=== PATIENT | female | born 1965 | race Caucasian/White ===

== ENCOUNTER 2021-11-21 01:27 | Day surgery (SDC) | payer BC, SELFPAY ==
[2021-11-04 14:22] VITALS: BMI 39.5
--- NOTE | 2021-11-20 14:28 | WPDANESEPPF ---
Anes - Initial Pre Proc Eval Procedure: Operation Date: 11/21/21 08:00 Proposed Procedures p Screening Colonoscopy - Roque Benavides MD Date/Time: 11/20/21 14:28 Surgeon: Roque Benavides MD Pre Op Diagnosis: hx of colon polyps, neoplasm screening Patient Data Age: 56 Gender: F Height: 1.63 m Weight: 104.5 kg Allergies Allergy/AdvReac Type Severity Reaction Status Date / Time Penicillins Allergy Unknown ? Verified 11/21/21 06:47 Home Medications Medication Instructions Recorded Confirmed Type cholecalciferol (vitamin D3) 50 50 mcg PO DAILY 12/28/19 11/21/21 History mcg (2,000 unit) capsule multivitamin with minerals-folic 0.4 mg PO DAILY 12/28/19 11/21/21 History acid 0.4 mg tablet (One Daily Womens 50 Plus) tamoxifen 20 mg tablet 20 mg PO DAILY 12/28/19 11/21/21 History venlafaxine 37.5 mg 37.5 mg PO DAILY 12/28/19 11/21/21 History tablet,extended release 24 hr calcium polycarbophil 625 mg 625 mg PO DAILY 04/02/21 11/21/21 History tablet (FiberCon) coenzyme Q10 10 mg capsule (Co 10 mg PO DAILY 04/02/21 11/21/21 History Q-10) atorvastatin 20 mg tablet 20 mg PO DAILY #90 tabs 06/24/21 11/21/21 Rx Patient hx anesthesia problems: none Family hx anesthesia problems: none Results Review: All pre-operative results and documents have been reviewed as part of the pre-operative evaluation. [facility] Past Medical History Medical History (Updated 11/20/21 @ 14:28 by Eliud Drake DO) Anxiety BMI 37.0-37.9, adult Breast cancer in female Colon cancer screening History of left breast cancer History of motion sickness Hot flashes Mixed hyperlipidemia Polyposis associated with heterozygous mutation in MUTYH gene Use of tamoxifen (Nolvadex) Surgical History Surgical History History of lymph node dissection of left axilla Family History Family History Father Hypertension Heart disease Hyperlipidemia Diabetes mellitus Mother Hypertension Hyperlipidemia Social History Social History Smoking status: Never smoker Alcohol intake: current Drinks per week: 1 Substance use: never Substance use type: does not use Living arrangements: with family Gender identity (if verbalized by the patient): Female Sexual Orientation (if Verbalized by the Patient): Straight or Heterosexual Spiritual care concerns: No Agree to blood products: Yes Anes - Eval Final PreProcedure Day of Procedure 11/20/21 14:28 Patient weight: obese Heart: regular rate and rhythm Lungs: clear to auscultation Airway: Mallampati scale class II Neurological: alert and oriented Last oral intake: >/= 8 hours ASA classification: III Emergent: no Anesthetic plan: proceed Anesthesia type and monitoring: general GIVS and standard monitoring Results Review: All pre-operative results and documents have been reviewed as part of the pre-operative evaluation. Informed Consent: The patient's anesthetic plan and its attendant risks and benefits were discussed with the patient/family/POA. Questions were solicited and answers provided to the satisfaction of the patient/family/POA.
--- NOTE | 2021-11-20 15:10 | PM.HPGS ---
History of Present Illness History of Present Illness Consent: Risks, benefits, and alternatives have been discussed and questions answered. Patient agrees to proceed with procedure. Chief complaint: hx of colon polyps, neoplasm screening Narrative: Samantha Tello is a 56 year old female With a history of polyps referred for colon cancer screening. She had an adenomatous polyp removed 4 years ago. Also, she carries a gene, having had genetic testing for colon cancer. Her grandfather had colon cancer Review of Systems Review of Systems: All systems reviewed & are unremarkable except as noted in HPI and below PMFSH Past Medical History Medical History Anxiety BMI 37.0-37.9, adult Breast cancer in female Colon cancer screening History of left breast cancer History of motion sickness Hot flashes Mixed hyperlipidemia Polyposis associated with heterozygous mutation in MUTYH gene Use of tamoxifen (Nolvadex) Surgical History Surgical History History of lymph node dissection of left axilla Family History Family History Father Hypertension Heart disease Hyperlipidemia Diabetes mellitus Mother Hypertension Hyperlipidemia Social History Social History Smoking status: Never smoker Alcohol intake: current Drinks per week: 1 Substance use: never Substance use type: does not use Living arrangements: with family Gender identity (if verbalized by the patient): Female Sexual Orientation (if Verbalized by the Patient): Straight or Heterosexual Spiritual care concerns: No Agree to blood products: Yes Meds Home Medications and Allergies Home Medications Medication Instructions Recorded Confirmed Type cholecalciferol (vitamin D3) 50 50 mcg PO DAILY 12/28/19 11/21/21 History mcg (2,000 unit) capsule multivitamin with minerals-folic 0.4 mg PO DAILY 12/28/19 11/21/21 History acid 0.4 mg tablet (One Daily Womens 50 Plus) tamoxifen 20 mg tablet 20 mg PO DAILY 12/28/19 11/21/21 History venlafaxine 37.5 mg 37.5 mg PO DAILY 12/28/19 11/21/21 History tablet,extended release 24 hr calcium polycarbophil 625 mg 625 mg PO DAILY 04/02/21 11/21/21 History tablet (FiberCon) coenzyme Q10 10 mg capsule (Co 10 mg PO DAILY 04/02/21 11/21/21 History Q-10) atorvastatin 20 mg tablet 20 mg PO DAILY #90 tabs 06/24/21 11/21/21 Rx Allergies Allergy/AdvReac Type Severity Reaction Status Date / Time Penicillins Allergy Unknown ? Verified 11/21/21 06:47 Exam Resp: Auscultation: clear to auscultation bilaterally Cardio: Rate: regular rate Rhythm: regular rhythm GI: GI Palp: Yes Soft to palpation and No Tenderness to palpation present (GI) Assessment and Plan Assessment and plan (1) Colon cancer screening: Code(s): Z12.11 - Encounter for screening for malignant neoplasm of colon Status: Acute Assessment and Plan: Colonoscopy with possible biopsy or polypectomy or cautery or injection of substances.
[2021-11-21 06:48] VITALS: BP 122/84; PULSE 120; RESP 17; TEMP 36.8; O2SAT 98; BMI 40.3
[2021-11-21] MEDS: LACTATED RINGERS 1,000 ML 150 ML IV CONT (06:59)
[2021-11-21 08:12] VITALS: BP 95/54; PULSE 85; RESP 18; O2SAT 100
[2021-11-21 08:22] VITALS: BP 118/67; PULSE 84; RESP 22; O2SAT 100
[2021-11-21 08:32] VITALS: BP 118/61; PULSE 80; RESP 17; O2SAT 100
== END 2021-11-21 08:42 | disposition home or self-care (01) ==
PROVIDERS: PCP Family Medicine; Visit Provider Internal Medicine Gastroenterology
PROC: 0DJD8ZZ Inspection of Lower Intestinal Tract, Via Natural or Artificial Opening Endoscopic (ICD-10-PCS; CPT 45378; principal; 2021-11-21 08:00)
DX: Z12.11 Encounter for screening for malignant neoplasm of colon (principal); K57.30 Diverticulosis of large intestine without perforation or abscess without bleeding; Z86.010 Personal history of colon polyps; E78.2 Mixed hyperlipidemia; F41.9 Anxiety disorder, unspecified; Z85.3 Personal history of malignant neoplasm of breast; Z15.09 Genetic susceptibility to other malignant neoplasm; Z79.810 Long term (current) use of selective estrogen receptor modulators (SERMs); E66.9 Obesity, unspecified; Z68.41 Body mass index [BMI] 40.0-44.9, adult
CPT/HCPCS: 45378; J2704; J7120

== ENCOUNTER 2024-08-30 15:46 | Emergency (ER) | payer BC, SELFPAY ==
--- NOTE | 2024-08-30 15:49 | ED_ITS ---
HPI - URI/Sore Throat General Chief Complaint: Upper Respiratory Infection Stated Complaint: COLD/COUGH Time Seen by Provider: 08/30/24 15:55 Source: patient Mode of arrival: ambulatory Limitations: no limitations History of Present Illness HPI Narrative: aMribel is a 59-year-old female patient presenting to the clinic today with complaints of runny nose, sinus congestion, sinus pressure, and cough times 2 weeks. She denies any known fevers, chills, body aches. Denies any chest pain or shortness of breath. Does have some rib pain with coughing. Is coughing up some clearish brown phlegm at times. She is a nonsmoker Related Data Home Medications ?Medication ?Instructions ?Recorded ?Confirmed ?Last Taken ?Type cholecalciferol (vitamin D3) 50 50 mcg PO DAILY 12/28/19 06/09/24 11/20/21 History mcg (2,000 unit) capsule multivitamin with minerals-folic 0.4 mg PO DAILY 12/28/19 06/09/24 11/20/21 History acid 0.4 mg tablet (One Daily Womens 50 Plus) venlafaxine 37.5 mg 37.5 mg PO DAILY 12/28/19 06/09/24 11/20/21 History tablet,extended release 24 hr calcium polycarbophil 625 mg 625 mg PO DAILY 04/02/21 06/09/24 11/20/21 History tablet (FiberCon) coenzyme Q10 10 mg capsule (Co 10 mg PO DAILY 04/02/21 06/09/24 11/20/21 History Q-10) Allergies Allergy/AdvReac Type Severity Reaction Status Date / Time Penicillins Allergy Unknown ? Verified 06/09/24 10:45 Review of Systems Review of Systems: Pertinent positives per HPI. Patient denies any fever, chills, rash, visual changes, dizziness, shortness of breath, chest pain, palpitations, nausea, vomiting, diarrhea, constipation, abdominal pain, or any urinary issues. [facility] Past Medical History Medical History Mixed hyperlipidemia Polyposis associated with heterozygous mutation in MUTYH gene BMI 37.0-37.9, adult Use of tamoxifen (Nolvadex) Hot flashes Colon cancer screening History of motion sickness Anxiety History of left breast cancer Breast cancer in female Surgical History Surgical History History of lymph node dissection of left axilla Family History Family History Father Hypertension Heart disease Hyperlipidemia Diabetes mellitus Mother Hypertension Hyperlipidemia Social History Social History Smoking status: Never smoker Alcohol intake: current Drinks per week: 1 Substance use: never Substance use type: does not use Living arrangements: with family Occupation/Education: occupation Gender identity (if verbalized by the patient): Female Sexual Orientation (if Verbalized by the Patient): Straight or Heterosexual Spiritual care concerns: No Agree to blood products: Yes Comments At the time of my signature, I reviewed and agree with the nursing past medical, surgical, social, and family history. There is no relevant family history pertinent to the patient complaint. Exam Narrative: General: Well-developed, well nourished, in no apparent distress Head: Normocephalic, atraumatic Eyes: Pupils equally round and reactive to light bilaterally, EOM intact, sclera and conjunctive clear, no discharge, lids normal Ears: TMs intact and clear, ear canals clear, no drainage, grossly hearing normal. Nose: Nares patent, yellow nasal discharge, moderate inflammation, maxillary sinus tenderness. Mouth: Oropharynx without lesions or masses, good dentition, MMM. Postnasal drip Neck: Supple, trachea midline, no enlargement of anterior or posterior cervical nodes, no thyroid masses or goiter palpable. Cardio: Regular rate and rhythm, s1 and s2 normal, no murmur appreciated. Resp: Clear to auscultation bilaterally anteriorly and posteriorly, no rhonchi, rales, wheezing or rubs Course Course Emergency Course: Portions of this record may have been created with voice recognition software. Level of Care: Express Care Visit Vital Signs Vital signs: Vital Signs Temperature 36.7 C 08/30/24 15:55 Pulse Rate 92 08/30/24 15:55 Respiratory Rate 16 08/30/24 15:55 Blood Pressure 177/84 H 08/30/24 15:55 Pulse Oximetry 98 08/30/24 15:55 Temperature 36.7 C 08/30/24 15:55 Pulse Rate 92 08/30/24 15:55 Respiratory Rate 16 08/30/24 15:55 Blood Pressure 177/84 H 08/30/24 15:55 Pulse Oximetry 98 08/30/24 15:55 Vital signs reviewed MDM - URI/Sore Throat MDM Narrative Medical decision making narrative: At the time of visit patient is resting comfortably on the exam table. Patient appears to be nontoxic. Plan: I suspect patient has rhinosinusitis. Prescription for doxycycline, Tessalon Perles, and prednisone was sent to the pharmacy. Supportive measures were discussed with the patient and they voiced understanding discharge instructions and agrees to treatment plan. Return precautions reviewed Discharge Plan Discharge Clinical Impression: Acute rhinosinusitis Patient Disposition: Home Condition: Stable Instructions: Antibiotic Form, Sinusitis (ED) Additional Instructions: Take prescription medications only as prescribed-doxycycline and prednisone Increase fluids and stay well hydrated Tylenol/motrin for pain/fever Flonase and OTC antihistamines as directed Vicks vapor rub to open sinuses Sinus rinses for congestion Cepacol spray, cough drops, throat lozenges, warm tea with honey/lemon, gargle salt water to soothe throat BRAT diet for diarrhea Clear liquids x 24 hours then advance as tolerated for nausea/vomiting Go to the ED if you develop a worsening in your condition- high fever not controlled by Tylenol or Motrin, dehydration, weakness, lethargy, shortness of breath, or chest pain. Follow up with your PCP in 3-5 days if symptoms persist. Patient Language: Persian Prescriptions: New prednisone 20 mg tablet 40 mg PO DAILY 5 Days Qty: 10 0RF doxycycline monohydrate 100 mg capsule 100 mg PO BID 10 Days Qty: 20 0RF benzonatate 200 mg capsule 200 mg PO TID 7 Days Qty: 21 0RF No Action venlafaxine 37.5 mg tablet extended release 24hr 37.5 mg PO DAILY One Daily Womens 50 Plus 0.4 mg tablet 0.4 mg PO DAILY cholecalciferol (vitamin D3) 50 mcg (2,000 unit) capsule 50 mcg PO DAILY coenzyme Q10 [Co Q-10] 10 mg capsule 10 mg PO DAILY calcium polycarbophil [FiberCon] 625 mg tablet 625 mg PO DAILY atorvastatin 20 mg tablet 20 mg PO DAILY Qty: 90 2RF Follow-up/Referrals: Pinky Tierney MD [Primary Care Provider] - Time of Disposition: 16:00 Quality NIHSS Nursing Documentation ED NIHSS nursing documentation: reviewed/agree
[2024-08-30 15:55] VITALS: BP 177/84; PULSE 92; RESP 16; TEMP 36.7; O2SAT 98
== END 2024-08-30 16:02 | disposition home or self-care (01) ==
PROVIDERS: Emergency Provider Nurse Practitioner Family; PCP Family Medicine
DX: J01.90 Acute sinusitis, unspecified (principal); E78.2 Mixed hyperlipidemia; F41.9 Anxiety disorder, unspecified; Z85.3 Personal history of malignant neoplasm of breast
CPT/HCPCS: 99213; G0463

== ENCOUNTER 2024-11-24 00:22 | Day surgery (SDC) | payer BC, SELFPAY ==
[2024-11-14 08:34] VITALS: BMI 41.2
--- OUTSIDE RECORDS SUMMARY | 2024-11-24 00:24 | XMS_ITS | Encounter Summary ---
Author Organization [facility] Address [address] [place] [address] Care Team Providers Care Equipment Operator/Laborer/Supervisor Name Role Phone Taran Olivarez Primary Care Provider [phone] Encounter Details Date Type Department Care Team (Late Contact Info) Description 01/15/2002 Outpatient Historical [facility] [place], [place] [address] [facility] [address] [place] [address] Social History Tobacco Use Types Packs/Day Years Used Date Smoking Tobacco: Never Assessed Comments Unknown Sex and Gender Information Value Date Recorded Sex Assigned at Not on file Legal Sex Female 4:22 AM MANAGER LINE Gender Identity Not on file Sexual Orientation Not on file documented as of this encounter Plan of Treatment Upcoming Encounters Date Type Department Care Team ([facility] Contact Info) Description 11/29/2024 10:50 AM CDT Appointment [facility] [address] [place] [address] Ambar Hamlin MD [address] [place] [id number] 11/29/2024 11:30 AM CDT Office Visit [facility] Nakia Farr [address] [place] [address] Ambar Hamlin MD [address] [place] [address] documented as of this encounter Visit Diagnoses Not on filedocumented in this encounter Care Teams Equipment Operator/Laborer/Supervisor Relationship Specialty Start Date End Date Taran Olivarez PA [address] [place] [address] PCP - General Physician Relationship Mgr 10/30/20 documented as of this encounter
--- OUTSIDE RECORDS SUMMARY | 2024-11-24 00:24 | XMS_ITS | Clinical Summary ---
Author Organization [facility] [address] [place] Address [address] [place] [id number] Care Team Providers Care Amusement Ride Inspector Name Role Phone Pinky Tierney MD Primary Care Provider [phone] Allergies Active Allergy Reactions Criticality Noted Date Comments Penicillins Rash Medium 05/13/2023 Medications venlafaxine XR (EFFEXOR-XR) 37.5 mg 24 hr capsule Take 1 capsule (37.5 mg total) by mouth daily 3 Active multivitamin tablet Take 1 tablet by mouth daily Active cholecalciferol (D3-2000) 2000 unit capsule Active calcium polycarbophil (FIBERCON ORAL) Acti ve atorvastatin (LIPITOR) 20 mg tablet Take 1 tablet (20 mg total) by mouth daily 3 Active coenzyme Q10 (Co Q-10) 10 mg capsule Active benzonatate (TESSALON) 100 mg capsuleIndications :Cough Take 1 capsule (100 mg total) by mouth 3 (three) times a day as needed for cough 21 capsule 4 Active Active Problems No known active problems Social History Tobacco Use Types Packs/Day Years Used Date Smoking Tobacco: Never Assessed Comments Unknown Sex and Gender Information Value Date Recorded Sex Assigned at Not on file Legal Sex Female 11:33 PM POLICE DETENTION ATTENDANT Gender Identity Not on file Sexual Orientation Not on file Obstetrics History Last Filed Vital Signs Vital Sign Reading Time Taken Comments Blood Pressure 141/83 05/13/2023 12:18 PM POLICE DETENTION ATTENDANT Pulse 94 05/13/2023 12:18 PM POLICE DETENTION ATTENDANT Temperature 37 C (98.6 F) 05/13/2023 12:18 PM POLICE DETENTION ATTENDANT Respiratory Rate 18 05/13/2023 12:1 8 PM POLICE DETENTION ATTENDANT Oxygen Saturation 99% 05/13/2023 12: 18 PM POLICE DETENTION ATTENDANT Inhaled Oxygen Concentration - - Weight 102.6 kg (226 lb 3.2 oz) 024 12:18 PM POLICE DETENTION ATTENDANT Height 162.6 cm (5' 4) 05/13/2023 12:1 8 PM POLICE DETENTION ATTENDANT Body Mass Index 38.83 05/13/2023 12:18 PM POLICE DETENTION ATTENDANT Plan of Treatment Health Maintenance Due Date Last Done Comments Breast Cancer Screening-Mammogram 1965 Cervical Cancer Screening 1965 Colon Cancer Screening-Colonoscopy 1965 Depression Screening 1965 Hepatitis C Screening 1965 DTaP/Tdap/Td Vaccine (1 - Tdap) 1976 Hepatitis B Screening 1983 Regular Well Visit/Exam 18-64 1983 Zoster Vaccine (1 of 2) 2015 Covid-19 Vaccine (2 - 2023-2 5 season) 2024 08/17/2020 Influenza Vaccine (Season Ended) 2025 Pneumococcal vaccine <65 Aged Out No longer eligible based on patient's age to complete this topic Insurance [facility] ACCESS CHO[facility] Member Subscriber Plan / Payer (Ef fective 2022-Present) Name:Samantha Tello Relation to Subscriber:Self Name:Samantha Tello Payer ID:[id number] (NAIC) Type:ALFREDO BOWEN Address: [facility] [address] [place] [id number] Care Teams Amusement Ride Inspector Relationship Specialty Start Date End Date Pinky Tierney MD PCP - General Family Medicine 05/13/23
--- OUTSIDE RECORDS SUMMARY | 2024-11-24 00:24 | XMS_ITS | Clinical Summary ---
Author Organization [facility] Address [address] [place] [address] Phone Care Team Providers Care Mallet And Die Cutter Name Role Phone Taran Olivarez Primary Care Provider [phone] Allergies Active Allergy Reactions Criticality Noted Date Comments Penicillins Unknown 09/23/2017 Medications venlafaxine (EFFEXOR) 37.5 mg tablet Take 37.5 mg by mouth daily. Active atorvastatin (LIPITOR) 5 mg tablet Take 5 mg by mouth daily with supper. Active IBUPROFEN ORAL Take by mouth. Active ubidecarenone (COENZYME Q10 ORAL) Take by mouth. Active cholecalciferol (VITAMIN D3) 400 unit Tablet Take by mouth daily. Active multivitamin (DAILY-SHLOMO) tablet Take 1 Tablet by mouth daily. Active calcium polycarbophil (FIBERCON ORAL) Take by mouth. Active Active Problems Problem Noted Date Diagnosed Date Malignant neoplasm of upper- outer quadrant of left breast in female, ILC 09/23/2017 Overview (05/26/2018): Stage: Clinical T1 N0; pT1c (m), pN0 (sn) Date of diagnosis: 09/07/17 Diagnosis: LEFT 12 mm ILC (multi) 0/2 LN Surgeon: Tyerl Surgery: 10/18/17 left lump (MRI bracket)/SLN; 10/27/17 left re-excision Medical Oncologist: Bakari OncotypeDX: score = 11 (low risk) Chemotherapy: none Radiation Oncologist: Tammie Radiation: 12/08 - 01/05/2018; Left Breast Hypofx Left Breast 4256 cGy at 266 cGy x 16 fractions (prone) Breast Boost 1000 cGy at 200 cGy x 5 fractions (prone) Hormonal therapy: Tamoxifen after RT is planned Treatment Summary and Survivorship Plan mailed to home for review. Patient encouraged to call gas turbine assembler office with any additional questions or concerns. Marked as complete on 03/03/18. Bridgett Bustamante RN BS BSN Breast Health Nurse Navigator- Breast Center Encounters Date Type Department Care Team Description 11/22/2024 External Device Data [facility] ABSTRACTION Provider, Abstract 11/21/2024 External Device Data [facility] ABSTRACTION Provider, Abstract 10/25/2024 External Device Data [facility] ABSTRACTION Provider, Abstract 09/26/2024 External Device Data [facility] ABSTRACTION Provider, Abstract from Last 3 Months Family History Medical History Relation Name Comments Heart Disease Father Cancer Maternal Grandmother Colon Cancer Paternal Grandfather Heart Disease Paternal Grandfather Breast Cancer Neg Hx Ovarian Cancer Neg Hx Relation Name Status Comments Father Maternal Grandmother Paternal Grandfather Social History Tobacco Use Types Packs/Day Years Used Date Smoking Tobacco: Never Smokeless Tobacco: Never Tobacco Cessation:Counseling Given: Not Answered Alcohol Use Standard Drinks/Week Comments Yes 1 (1 standard drink = 0.6 oz pur e alcohol) Comments No Sex and Gender Information Value Date Recorded Sex Assigned at Not on file Legal Sex Female 4:22 AM ORTHODONTIC TREATMENT COORDINATOR Gender Identity Not on file Sexual Orientation Not on file Last Filed Vital Signs Vital Sign Reading Time Taken Comments Blood Pressure 135/83 11/29/2023 2:39 PM CDT Pulse 90 11/29/2023 2:39 PM CDT Temperature 36.9 C (98.4 F) 11/29/2023 2:39 PM CDT Respiratory Rate 18 11/29/2023 2:39 PM CDT Oxygen Saturation 98% 11/29/2023 2:39 PM CDT Inhaled Oxygen Concentration - - Weight 105.4 kg (232 lb 6.4 oz) 11/29/2023 2:39 PM CDT Height 162.6 cm (5' 4) 03/03/2023 2:21 PM CDT Body Mass Index 39.89 03/03/2023 2:21 PM CDT Plan of Treatment Upcoming Encounters Date Type Department Care Team (Late st Contact Info) Description 11/29/2024 10:50 AM CDT Appointment [facility] Phillip Yordan [id number] [place] [phone] Ambar Hamlin MD [address] [place], [place] [id number] 11/29/2024 11:30 AM CDT Office Visit [facility] Oncology and Hematology Phillip Farr [address] [place] [phone] Ambar Hamlin MD [address] [place] [address] Health Maintenance Due Date Last Done Comments Pre-Diabetes and Diabetes Screening 1965 DTAP/TDAP/TD VACCINES (1 - Tdap) 1984 HEPATITIS B VACCINES (1 of 3 - 19+ 3-dose series) 1984 HPV/Cotest (21-29) 1986 CERVICAL CANCER SCREENING 1995 HPV/Cotest (30-65) 1995 PAP SMEAR 1995 COLORECTAL SCREENING 2010 Colorectal Cancer Screening 2010 FIT-DNA Q 3 years 2010 FIT/FOBT Q 1 year 2010 Flex Sig/CT Colonography Q 5 years 2010 ZOSTER VACCINE (1 of 2) 2015 BREAST CANCER SCREENING 11/28/2024 11/29/19 24, 11/26/2022, 11/25/2021, Additional history exists INFLUENZA VACCINE (#1) 2024 Procedures Procedure Name Priority Date/Time Associated Diagnosis Comments MAMMO SCREEN BILAT W OR WO CAD Routine 11/29/2023 2:31 PM CDT Malignant neoplasm of upper-outer quadrant of left breast in female, estrogen receptor positive (CMS/HCC) Malignant neoplasm of upper-outer quadrant of left breast in female, ILC from Last 3 Months or Most Recently Relevant to Health Maintenance Results * MAMMO SCREEN BILAT W OR WO CAD (11/29/2023 2:31 PM CDT) Anatomical Region Laterality Modality Breast Bilateral Mammography 11/29/2023 2:32 PM CDT Impressions 11/30/2023 8:02 AM CDT IMPRESSION: No evidence of malignancy and no interval change. RECOMMENDATIONS: Bilateral annual screening mammogram. OVERALL FINAL ASSESSMENT: BI-RADS CATEGORY 2 - Benign findings. DICTATION LOCATION: [facility] Narrative 11/30/2023 8:02 AM CDT BILATERAL SCREENING DIGITAL MAMMOGRAMS WITH COMPUTER ASSISTED DIAGNOSIS DATE: 11/29/2023 2:31 PM HISTORY: Left breast cancer and left lumpectomy. Annual checkup. COMPARISON: 11/26/2022 and 11/25/2021. TECHNIQUE: A bilateral screening mammogram was performed. BREAST COMPOSITION: Heterogeneously dense, which limits the sensitivity of mammography. FINDINGS: No new masses, suspicious calcifications, or areas of asymmetry or distortion are identified. The postsurgical changes in the left breast are again seen. The images were reviewed using the CAD system. Procedure Note Chhaya Randle MD - 11/30/2023 BILATERAL SCREENING DIGITAL MAMMOGRAMS WITH COMPUTER ASSISTED DIAGNOSIS DATE: 11/29/2023 2:31 PM HISTORY: Left breast cancer and left lumpectomy. Annual checkup. COMPARISON: 11/26/2022 and 11/25/2021. TECHNIQUE: A bilateral screening mammogram was performed. BREAST COMPOSITION: Heterogeneously dense, which limits the sensitivity of mammography. FINDINGS: No new masses, suspicious calcifications, or areas of asymmetry or distortion are identified. The postsurgical changes in the left breast are again seen. The images were reviewed using the CAD system. IMPRESSION: No evidence of malignancy and no interval change. RECOMMENDATIONS: Bilateral annual screening mammogram. OVERALL FINAL ASSESSMENT: BI-RADS CATEGORY 2 - Benign findings. DICTATION LOCATION: [facility] Germaine Vila MD MAMMO ORDERABLES Final Result from Last 3 Months or Most Recently Relevant to Health Maintenance Insurance [facility] BLUE ACCESS CHOICE Advance Directives For more information, please contact: [phone] * Full Code (Latest Code Status on File) Date Activated Date Inactivated Comments 10/27/2017 2:15 PM 10/27/2017 7:28 PM Care Teams Mallet And Die Cutter Relationship Specialty Start Date End Date Taran Olivarez PA [address] [place] [address] PCP - General Physician Car Inspector 10/30/20
--- OUTSIDE RECORDS SUMMARY | 2024-11-24 00:24 | XMS_ITS | Encounter Summary ---
Author Organization [facility] Address [address] [place] [address] Care Team Providers Care Animal Impersonator Name Role Phone Taran Olivarez Primary Care Provider [phone] Encounter Details Date Type Department Care Team (Latest Contact Info) Description 12/12/2001 Outpatient Historical [facility] TRISTEN Rodriguez II, [place] [address] [facility] [address] [place] [address] INFERTILITY-ANOVULAT ION (Primary Dx) Social History Tobacco Use Types Packs/Day Years Used Date Smoking Tobacco: Never Assessed Comments Unknown Sex and Gender Information Value Date Recorded Sex Assigned at Not on file 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 [place] [address] 11/29/2024 11:30 AM CDT Office Visit [facility] Oncology and Hematology Nakia Farr [address] [place] [address] Ambar Hamlin MD [address] [place] [address] documented as of this encounter Visit Diagnoses Diagnosis Female infertility associated with anovulation- Primary documented in this encounter Care Teams Animal Impersonator Relationship Specialty Start Date End Date Taran Olivarez PA [address] [place] [address] PCP - General Physician Paid Internship 10/30/20 documented as of this encounter
--- OUTSIDE RECORDS SUMMARY | 2024-11-24 00:24 | XMS_ITS | Encounter Summary ---
Author Organization [facility] Address [address] [place] [address] Care Team Providers Care Milking System Installer Name Role Phone Taran Olivarez Primary Care Provider [phone] Encounter Details Date Type Department Care Team (Latest Contact Info) Description 12/14/2001 Outpatient Historical [facility] TRISTEN Rodriguez II, [place] [address] 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
--- OUTSIDE RECORDS SUMMARY | 2024-11-24 00:24 | XMS_ITS | Encounter Summary ---
Author Organization [employer] Address 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 Gender Identity Not on file Sexual Orientation Not on file documented as of this encounter Plan of Treatment Upcoming Encounters Date Type Department Care Team (Late Contact Info) Description 11/29/2024 10:50 AM CDT Appointment [facility] [address] [place] [address] Ambar Hamlin MD [address] [place] [address] 11/29/2024 11:30 AM CDT Office Visit [facility] Oncology and Hematology Nakia Farr [address] [place] [phone] Ambar Hamlin MD [address] [place] [id number] documented as of this encounter Visit Diagnoses Not on filedocumented in this encounter Care Teams Banking Officer Relationship Specialty Start Date End Date Taran Olivarez PA [address] [place] [address] PCP - General Physician Pants Busheler 10/30/20 documented as of this encounter
--- OUTSIDE RECORDS SUMMARY | 2024-11-24 00:24 | XMS_ITS ---
Author Organization [facility] Address [address] [place] [address] Phone Care Team Providers Care Wood Box Maker Name Role Phone Taran Olivarez Primary Care Provider [phone] Active Problems Problem Noted Date Diagnosed Date Malignant neoplasm of upper- outer quadrant of left breast in female, ILC 09/23/2017 Overview (05/26/2018): Stage: Clinical T1 N0; pT1c (m), pN0 (sn) Date of diagnosis: 09/07/17 Diagnosis: LEFT 12 mm ILC (multi) 0/2 LN Surgeon: Cadence Surgery: 10/18/17 left lump (MRI bracket)/SLN; 10/27/17 [...] home for review. Patient encouraged to call pressed or blown glass worker office with any additional questions or concerns. Marked as complete on 03/03/18. Bridgett Bustamante RN BS BSN Breast Health Nurse Navigator- [facility] Current Treatment and Therapy Plans No current plan information found. Past Treatment and Therapy Plans No past plan information found. Treatment Summaries Malignant neoplasm of upper-outer quadrant of left breast in female, estrogen receptor positive (CMS/HCC)* Breast Cancer Survivorship Care Plan Provided by Grace on 03/03/18 General Information Patient Name: Samantha Tello Patient : 1965 Care Team Medical Oncologist: Dr. Jayro Villegas Surgeon: Dr. Germaine Vila Radiation Oncologist: Dr. Hodan Cho Primary Care Physician: Dr. Monty Valderrama comic book artist Physician: Dr. Lance Rodriguez II Staging: Pathologic Stage IA (T1c??N0 Mx) Treatment Summary Chemotherapy Not Indicated. 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 You may have one or more of these problems or you may not experience any of these problems. Please contact your doctor if you have: ??? A collection of fluid in the area of surgery that does not go away. ??? Scars in the area of surgery or internally that may cause difficulty with movement. ??? Pain in the area of surgery that does not go away after the site is healed. This may last for along period of time. ??? Difficulty in moving your shoulder and/or arm on the side of your surgery. ??? Numbness, tingling, pain or weakness in the arm or hand of the side of your surgery. ??? A clicking sound, accompanied by pain that happens when you raise your arm. ??? Swelling or water retention in the hand, arm or shoulder region on the side of your surgery. Some people may experience swelling in their chest or back. The swelling may come and go or it may notgo away. ??? Numbness at the surgery site. Radiation Treatment: Late side effects generally occur 6 or more months after the completion of radiation therapy. The extent and severity of these side effects vary depending on patient factors and radiation treatment design. The majority of radiation side effects occur within the radiation treatment field. ?? Skin changes ?? Risk of nerve damage ?? Risk of lymphedema ?? Risk of lung tissue changes ?? Risk of cardiac damage (if left sided breast cancer) ?? Risk of secondary cancers BREAST CANCER RECURRENCE SCREENING RECOMMENDATIONS After treatment for breast cancer, follow-up care is important to maintain good health, manage any side effects from treatment, watch for signs of reoccurrence, and screen for other types of cancer. Regular physical examinations and other medical tests help monitor your recovery during the coming months and years. Be sure to ask about any concerns you have about your physical or emotional health. Any new, unusual and/or persistent symptoms should be brought to the attention of your provider In general, the following screening tests and schedule are recommended: ??? Medical history and physical examination. Visit your medical oncologist every 3 to 6 months forthe first 3 years after the first treatment, every 6 to 12 months for the next 2 years, and then once each year thereafter ??? Mammography. Schedule a mammogram 1 year after the first mammogram that led to your diagnosis. However, if you have had radiation therapy, wait 6 months after your last treatment. After this first post-treatment mammogram, mammography is recommended at least every year, either on one or both breasts depending on the type of surgery you received ??? Breast self-examination. Perform breast self-examination every month. This procedure is not a substitute for a mammogram. ??? Genetic counseling. Another important part of follow-up care is to tell your doctor if you havea history of cancer in your family because you may benefit from genetic counseling. ??? Endocrine therapy. If it is a part of your treatment plan, continue endocrine therapy as directed by your oncologist. (i.e. Tamoxifen, Femera, Arimidex, Aromasin) ??? Bone Density. Schedule a bone density test every 2 years, particularly if you are taking an aromatase inhibitor (Letrozole, Anastrazole, Exemestane) ??? Pap/pelvic exam. As indicated by your provider; cervical cancer screening ??? Colon screening (colonoscopy) every 5-10 years or per provider recommendation ??? Continue your routine visits to your primary care physician for non-cancer related preventativecare. ?? weight management ?? cholesterol management ?? blood sugar control ?? blood pressure control ?? mental health ?? vaccines ?? diet and exercise ?? smoking cessation (if needed) Your medical oncologist has recommended daily Tamoxifen as part of your breast cancer treatment. Some women may take tamoxifen for 5 years. Other women may take it for 2 or 3 years and then switch javier aromatase inhibitor. Depending on your unique situation, your doctor may recommend that you taketamoxifen for a longer or shorter amount of time. Tamoxifen in Pill Form (Brand Name: Nolvadex) Tamoxifen, the generic name of Nolvadex, is the oldest and most-prescribed SERM. Tamoxifen is approved by the U.S. Food and Drug Administration (FDA) to treat: ??? women and men diagnosed with ennkgpg-zgjchzbv-wovyqdwo, early-stage breast cancer after surgery(or possibly chemotherapy and radiation) to reduce the risk of the cancer coming back (recurring) ??? women and men diagnosed with advanced-stage or metastatic ruqnvtn-iuvgqnxy-kceitjer disease Tamoxifen also is used to: ??? reduce breast cancer risk in women who haven't been diagnosed but are at avvdcy-iebt-ennapvc risk for disease Tamoxifen offers other health benefits that aren't related to treating cancer. Because it's a SERM,it selectively either blocks or activates estrogen's action on specific cells. While tamoxifen blocks estrogen's action on breast cells, it activates estrogen's action in bone and liver cells. So tamoxifen can: ??? help stop bone loss after menopause ??? lower cholesterol levels Side effects of tamoxifen Tamoxifen's selective estrogen activation effects can cause some serious side effects, including blood clots, stroke, and endometrial cancer. If you and your doctor are considering tamoxifen as part of your treatment plan, tell your doctor if you smoke or have a history of blood clots or heart attack. If you're taking tamoxifen, call your doctor immediately if you have any of these symptoms: ??? abnormal vaginal bleeding or discharge ??? pain or pressure in the pelvis ??? leg swelling or tenderness ??? chest pain ??? shortness of breath ??? weakness, tingling, or numbness in your face, arm, or leg ??? difficulty speaking or understanding ??? vision problems ??? dizziness ??? sudden severe headache The most common side effects of tamoxifen are: ??? hot flashes ??? nausea ??? fatigue Symptom management tips: Hot flashes ??? Talk to your doctor as soon as you start having hot flashes. Don???t wait until they become severe. You may be able to stop your treatment for a week or two, restart it at a lower dose, and slowly increase it. Your body may be better able to adjust to the changes this way. You also may be able to switch to a different medicine that doesn???t cause you as many hot flashes. ??? Avoid hot flash triggers such as stress, cigarettes, alcohol, caffeine, diet pills, spicy food,hot food or drink, hot tubs, saunas, hot showers, hot rooms, and hot weather. ??? Reduce the fat in your diet. Over time, a low-fat diet helps some people with hot flashes. Losing excess weight helps, but losing too much weight, or being too thin, can make hot flashes worse. ??? Dress in layers so you can peel off one layer after another as you get warmer. ??? Don???t wear heavy or thick fabrics such as wool, synthetics, or silk. Wear loose and airy fabrics such as cotton, linen, and carlyn. ??? Keep ice water nearby so you can sip it to cool down. Pack a small cooler full of cold water tocarry with you. ??? Lower the room temperature by turning down the thermostat, turning on the air conditioner, or turning on the ceiling fan. ??? Sleep in cotton pajamas or a nightgown. If you have hot flashes and perspire at night, the nightclothes are easier to change than the sheets. ??? Put cotton sheets on your bed. Cotton soaks up sweat and dries quickly. ??? Take a cool shower before going to bed. ??? Try 500mg Magnesium BID (twice a day) ??? Consider complementary and holistic therapies. Techniques that may help include meditation, massage, yoga, and acupuncture. ??? Ask your doctor about techniques to help you sleep through the night if your hot flashes are affecting your sleep. ??? Be patient. Your body is going through changes. Once the changes take place, you???ll feel morelike yourself again. Fatigue ??? Talk to your doctor. You may be able to switch to a different hormonal therapy medicine that may ease your fatigue. ??? Some complementary and holistic medicine techniques have been shown to reduce fatigue, including acupuncture, massage, meditation, karen chi, and yoga. ??? Eat a healthy diet that includes lots of fresh, unprocessed food, including fruits, vegetables,and lean protein. ??? Exercise regularly. Exercise helps improve your stamina and has been shown to ease fatigue. ??? Try a catnap. Beware of long naps, though. You might end up wide awake in the middle of the night. Daytime naps should be no more than 30 minutes, so you won't fall into deep sleep. (Waking up groggy usually means you've napped too long.) If you find you need a nap every day, take it at a regularly scheduled hour, but try not to nap after 2 p.m. ??? Keep to a routine. Go to bed at the same time each night and get up at the same time each morning. Don't stay in bed after you wake up. Make sure you get enough sleep and that you sleep for the same amount of time each night. ??? Keep a diary of how you feel each day. Keep a daily diary of your fatigue to identify when it'sthe worst and when it's least troubling. ??? Plan activities during the times you have the most energy. Schedule rest periods when your energy is lowest. Make sure you balance each activity with a rest period if you need it. ??? Organize each day. Figure out what you have to do and when you need to do it. Pacing yourself helps to conserve your energy. ??? Ask for help. Accept offers of help and goodwill from family and friends. If no one has offeredto help and everyone seems too busy, ask for what you need -- even if asking is one of the hardest things for you to do. Get help with little things: taking out the trash, folding the laundry, or paying bills. Keep a list of things you need done so when people ask what they can do, you can give them the list. ??? Keep lists and make notes to remind you of important things if your memory and concentration are affected by fatigue. Also, give yourself more time for activities that take concentration. ??? Be kind to yourself. If you're fatigued, don't beat yourself up because you can't do what you're supposed to do. That browbeating takes energy you can't afford to waste and can add to depression. Do nice things for yourself and give yourself permission to rest and recover, for as long as it takes. Nausea ??? Eat small amounts of food all day long, so you don???t feel full too quickly. ??? Eat dry foods that are less likely to upset your stomach, such as crackers, toast, and cereal. ??? Stay away from greasy foods that might disagree with your stomach. ??? Try sydnie-based foods to help ease nausea. These include sydnie matt, sydnie tea, or crystallized sydnie eaten as a snack. ??? Sit up after eating -- lying down after meals may disrupt digestion. ??? Rinse your mouth before and after meals to get rid of any bad tastes that may make you nauseated. ??? Ask someone to cook for you or order take-out so you can avoid strong smells that may be unpleasant for you. ??? Ask your doctor about anti-nausea medications that you can take before or along with your breast cancer treatment. There are also anti-nausea medications you can take along with pain medications that nauseate you. ??? Consider complementary and holistic techniques such as acupuncture, relaxation, and visualization to reduce nausea. Vaginal dryness ??? Can try [place] or Replens over the counter products ??? Daily application of coconut oil or olive oil. ??? Avoid estrogen based vaginal creams such as Estrace. Lifestyle modifications could have a modest impact on risk reduction as well. Recommend a healthy diet including low fat, high fiber foods, low sodium and low cholesterol foods. Mediterranean dietrecommended and info provided. 10 Point Mediterranean lifestyle helm component checklist: ??? DAILY food #1: Extra virgin olive oil (minimum one tablespoon per day) ??? DAILY food #2: [place]-3 fat (short chain plant version, ???ALA?? --flaxseeds, walnuts, canola oil--minimum once per day) ??? DAILY food #3: Legumes (beans, peas or lentils; minimum once/day) ??? DAILY food #4: Vegetables (green, orange or purple in color, minimum two meals/day) ??? DAILY food #5: Whole grains (oatmeal, 100% whole grain bread, popcorn, brown rice; minimum two meals/day and preferably at every meal) ??? DAILY food #6: Fresh fruit (minimum two servings per day) ??? DAILY food #7: Nuts (minimum: handful/day) ??? DAILY food #8: Red wine (two drinks or less per week) ??? WEEKLY food #9: [place]-3 fat (long-chain animal version, ???EPA/DHA?? )- mluvs-8-wtsf (EPA/DHA) fish such as salmon, halibut, albacore tuna, mackerel, sardines?? ----minimum two times/week) ??? WEEKLY food #10: weekly consumption of a small amount of low-fat or fat-free dairy (such as strong flavorful cheeses and yogurt), several servings per week; ??? Physical activity (minimum 30 minutes aerobic exercise per day) ??? If you???ve had breast cancer, you can eat soy, but in moderation. In general, it???s fine to eat moderate amounts of soy foods - about one to three servings per day as part of a balanced diet (aserving is about a half cup). If you???ve been diagnosed with breast cancer and are concerned aboutany isoflavone effects, ask your doctor or a crystal attacher about how much soy you can eat. [place] [employer] Guidelines on Nutrition and Physical Activity For Cancer Prevention 1. Achieve and maintain a healthy weight. ??? Avoid weight gain during cancer treatment, whether you are at a healthy weight or overweight. ??? Weight loss after recovery from treatment may benefit survivors who are overweight or obese. 2. Be physically active. ??? Studies show that exercise is safe during cancer treatment, and can improve many aspects of health, including muscle strength, balance, fatigue, and depression. ??? Physical activity after diagnosis is linked to living longer and a reduced risk of the cancer returning among people living with cancer, including breast, colorectal, prostate, and ovarian cancer. ??? Aim for 30 min of exercise 5 days a week. 3. Eat a healthy diet, with an emphasis on fruits, vegetables, and whole grains. ??? The most health benefits are associated with a diet high in fruits, vegetables, whole grains, poultry, and fish, and low in refined grains, red meat and processed meat (such as hot dogs), desserts, high-fat dairy products and Citizen [place] fries. Most of the studies about cancer and diet have focused on breast cancer. ??? Studies show that taking vitamins, herbs and other nutritional supplements often does not help cancer patients live longer, and may even shorten life. Before taking any supplement, discuss it with your health care provider. 4. Don't smoke 5. If you drink alcohol, limit your intake. ??? Drink no more than 1 drink per day for women or 2 per day for men. 6. Sunscreen use ??? Exposure to ultraviolet rays is the leading cause of skin cancer. It is important to protect your skin. Sun damage builds up over time. It is important to use sunscreen every day. You should use a sunscreen that is water resistant and has an SPF of 30 or above. Remember to also protect your lips and eyes. 7. Routine blood pressure, cholesterol, and glucose monitoring. ??? While many cancer survivors worry about their cancer coming back most cancer survivors are morelikely to develop other chronic medical conditions such as high blood pressure, heart disease, and diabetes. Be sure to start and/or continue to see your primary care physician regularly. 8. Vaccines ??? The flu is a respiratory infection caused by viruses. While most people with the flu get betteron their own it can be serious. It can cause many medical complications and sometimes even . Be sure to get an annual influenza vaccine (flu shot). ??? Pneumococcal diseases can cause serious infections in the lungs and bloodstream. A pneumococcalvaccine is recommended for all adults 65 years of age and older. It is also recommended for some younger adults who have chronic health conditions. Be sure and check with your doctor if you need a pneumococcal vaccine. 9. Routine Dental Care ??? Your oral health may be more important than you think. It can contribute to various medical diseases and conditions. Daily oral hygiene helps decrease our risk of tooth decay and gum disease. Be sure to brush twice a day, floss daily, and see your dentist regularly for checkups and cleanings. 10. Eye Health ??? Our eyes are called the windows to the world. Make sure you take good care of your eyes. Adultsshould have their eyes examined every 2 years until age 60. We should then undergo eye exams yearly. Individuals with contact lenses, glasses, or who are at high risk for eye problems (i.e. diabetes,family history of eye disease) should be seen more frequently.
--- OUTSIDE RECORDS SUMMARY | 2024-11-24 00:24 | XMS_ITS | Referral Summary ---
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 Gender Identity Not on file Sexual Orientation Not on file Last Filed Vital Signs Vital Sign Reading Time Taken Comments Blood Pressure 141/83 05/13/2023 12:18 PM FOREST SCIENTIST Pulse 94 05/13/2023 12:18 PM FOREST SCIENTIST Temperature 37 C (98.6 F) 05/13/2023 12:18 PM FOREST SCIENTIST Respiratory Rate 18 05/13/2023 12:1 8 PM FOREST SCIENTIST Oxygen Saturation 99% 05/13/2023 12: 18 PM FOREST SCIENTIST Inhaled Oxygen Concentration - - Weight 102.6 kg (226 lb 3.2 oz) 024 12:18 PM FOREST SCIENTIST Height 162.6 cm (5' 4) 05/13/2023 12:1 8 PM FOREST SCIENTIST Body Mass Index 38.83 05/13/2023 12:18 PM FOREST SCIENTIST Plan of Treatment Not on file Insurance [facility] ACCESS CHOICE Member Subscriber Plan / Payer (Ef fective 2022-Present) Name:Samantha Tello Relation to Subscriber:Self Name:Samantha Tello Payer ID:[id number] (NAIC) Type:[facility] Address: [facility] [id number] [phone] Care Teams Navigation Officer Relationship Specialty Start Date End Date Pinky Tierney MD PCP - General Family Medicine 05/13/23
--- NOTE | 2024-11-24 07:54 | WPDANESEPPF ---
Anes - Initial Pre Proc Eval Procedure: Operation Date: 11/24/24 09:30 Proposed Procedures p Screening Colonoscopy - Leif Francois MD Date/Time: 11/24/24 07:54 Surgeon: Leif Francois MD Pre Op Diagnosis: malignant neoplasm of colon Patient Data Age: 59 Gender: F Height: 1.63 m Weight: 108.9 kg Allergies Allergy/AdvReac Type Severity Reaction Status Date / Time Penicillins Allergy Unknown ? Verified 11/24/24 08:28 Home Medications ?Medication ?Instructions ?Recorded ?Confirmed ?Type cholecalciferol (vitamin D3) 50 50 mcg PO DAILY 12/28/19 11/24/24 History mcg (2,000 unit) capsule multivitamin with minerals-folic 0.4 mg PO DAILY 12/28/19 11/24/24 History acid 0.4 mg tablet (One Daily Womens 50 Plus) venlafaxine 37.5 mg 37.5 mg PO DAILY 12/28/19 11/24/24 History tablet,extended release 24 hr calcium polycarbophil 625 mg 625 mg PO DAILY 04/02/21 11/24/24 History tablet (FiberCon) coenzyme Q10 10 mg capsule (Co 10 mg PO DAILY 04/02/21 11/24/24 History Q-10) atorvastatin 20 mg tablet 20 mg PO DAILY #90 tabs 04/25/24 11/24/24 Rx Patient hx anesthesia problems: none Family hx anesthesia problems: none Results Review: All pre-operative results and documents have been reviewed as part of the pre-operative evaluation. [facility] Past Medical History Medical History Mixed hyperlipidemia Polyposis associated with heterozygous mutation in MUTYH gene BMI 37.0-37.9, adult Use of tamoxifen (Nolvadex) Hot flashes Colon cancer screening History of motion sickness Anxiety History of left breast cancer Breast cancer in female Surgical History Surgical History History of lymph node dissection of left axilla Family History Family History Father Hypertension Heart disease Hyperlipidemia Diabetes mellitus Mother Hypertension Hyperlipidemia Social History Social History Smoking status: Never smoker Alcohol intake: current Drinks per week: 1 Substance use: never Substance use type: does not use Living arrangements: with family Occupation/Education: occupation Gender identity (if verbalized by the patient): Female Sexual Orientation (if Verbalized by the Patient): Straight or Heterosexual Spiritual care concerns: No Agree to blood products: Yes Anes - Eval Final PreProcedure Day of Procedure 11/24/24 07:54 Patient weight: morbidly obese Heart: regular rate and rhythm Lungs: clear to auscultation Airway: Mallampati scale class II Neurological: alert and oriented Last oral intake: >/= 8 hours ASA classification: III Emergent: no Anesthetic plan: proceed Anesthesia type and monitoring: general GIVS and standard monitoring Results Review: All pre-operative results and documents have been reviewed as part of the pre-operative evaluation. Informed Consent: The patient's anesthetic plan and its attendant risks and benefits were discussed with the patient/family/POA. Questions were solicited and answers provided to the satisfaction of the patient/family/POA.
[2024-11-24 08:18] VITALS: BP 147/87; PULSE 87; RESP 18; TEMP 36.8; O2SAT 100; BMI 41.8
[2024-11-24] MEDS: LACTATED RINGERS 1,000 ML 150 ML IV CONT (08:40)
--- NOTE | 2024-11-24 09:05 | PM.HPGS ---
History of Present Illness History of Present Illness Consent: Risks, benefits, and alternatives have been discussed and questions answered. Patient agrees to proceed with procedure. Chief complaint: malignant neoplasm of colon Narrative: Samantha Tello is a 59 year old female with previous colon polyp, last colonoscopy 2021. Also she carries a gene, having had genetic testing for colon cancer. Review of Systems Review of Systems: All systems reviewed & are unremarkable except as noted in HPI and below PMFSH Past Medical History Medical History (Updated 11/24/24 @ 09:06 by Leif Francois MD) Adenomatous colon polyp Mixed hyperlipidemia Polyposis associated with heterozygous mutation in MUTYH gene BMI 37.0-37.9, adult Use of tamoxifen (Nolvadex) Hot flashes Colon cancer screening History of motion sickness Anxiety History of left breast cancer Breast cancer in female Surgical History Surgical History History of lymph node dissection of left axilla Family History Family History Father Hypertension Heart disease Hyperlipidemia Diabetes mellitus Mother Hypertension Hyperlipidemia Social History Social History Smoking status: Never smoker Alcohol intake: current Drinks per week: 1 Substance use: never Substance use type: does not use Living arrangements: with family Occupation/Education: occupation Gender identity (if verbalized by the patient): Female Sexual Orientation (if Verbalized by the Patient): Straight or Heterosexual Spiritual care concerns: No Agree to blood products: Yes Meds Home Medications and Allergies Home Medications ?Medication ?Instructions ?Recorded ?Confirmed ?Type cholecalciferol (vitamin D3) 50 50 mcg PO DAILY 12/28/19 11/24/24 History mcg (2,000 unit) capsule multivitamin with minerals-folic 0.4 mg PO DAILY 12/28/19 11/24/24 History acid 0.4 mg tablet (One Daily Womens 50 Plus) venlafaxine 37.5 mg 37.5 mg PO DAILY 12/28/19 11/24/24 History tablet,extended release 24 hr calcium polycarbophil 625 mg 625 mg PO DAILY 04/02/21 11/24/24 History tablet (FiberCon) coenzyme Q10 10 mg capsule (Co 10 mg PO DAILY 04/02/21 11/24/24 History Q-10) atorvastatin 20 mg tablet 20 mg PO DAILY #90 tabs 04/25/24 11/24/24 Rx Allergies Allergy/AdvReac Type Severity Reaction Status Date / Time Penicillins Allergy Unknown ? Verified 11/24/24 08:28 Vital Signs Vital Signs - 24 hr 11/24/24 08:18 Temperature 98.2 F Pulse Rate 87 Respiratory Rate 18 Blood Pressure 147/87 H Pulse Oximetry 100 Oxygen Delivery Room Air Exam Const: General: comfortable and no acute distress HENMT: Face/Nose/Sinus: Normal nares present Eyes: General: appearance normal, both eyes and all related structures Neck: Neck: no JVD Resp: Auscultation: clear to auscultation bilaterally Cardio: Rate: regular rate Rhythm: regular rhythm GI: Inspection: non-distended GI Palp: Yes Soft to palpation Skin: General skin exam: normal color Neuro: Speech: normal speech Extrem: General: normal to inspection Psych: Mental Status: mental status grossly normal Assessment and Plan Assessment and plan (1) Adenomatous colon polyp: Code(s): D12.6 - Benign neoplasm of colon, unspecified Status: Acute Assessment and Plan: colonoscopy
[2024-11-24 09:24] VITALS: BP 100/45; PULSE 77; RESP 18; O2SAT 100
[2024-11-24 09:34] VITALS: BP 131/69; PULSE 77; RESP 18; O2SAT 100
[2024-11-24 09:44] VITALS: BP 134/66; PULSE 73; RESP 17; O2SAT 100
== END 2024-11-24 09:50 | disposition home or self-care (01) ==
PROVIDERS: PCP Family Medicine; Referring Provider Student in an Organized Health Care Education/Training Program; Visit Provider Internal Medicine Gastroenterology
PROC: 0DJD8ZZ Inspection of Lower Intestinal Tract, Via Natural or Artificial Opening Endoscopic (ICD-10-PCS; CPT 45378; principal; 2024-11-24 09:30)
DX: Z12.11 Encounter for screening for malignant neoplasm of colon (principal); K57.30 Diverticulosis of large intestine without perforation or abscess without bleeding; K64.8 Other hemorrhoids; Z86.0100 Personal history of colon polyps, unspecified; Z15.09 Genetic susceptibility to other malignant neoplasm; E66.01 Morbid (severe) obesity due to excess calories; Z68.41 Body mass index [BMI] 40.0-44.9, adult
CPT/HCPCS: 45378; J2003; J2704; J7120